=== PATIENT | male | born 1960 | race Caucasian/White ===

== ENCOUNTER → 2018-05-02 | Outpatient (CLI) | payer OTHER ==
[~2018-05-02] MED LIST: ACE3 PO; ASPI-715 PO; KET10 PO; LORA10CA3 PO; MULT-1335 PO
== END ==
LOC: LAB 15:07
PROVIDERS: ATTEND Family Medicine
DX: M79.1 Myalgia (principal); E55.9 Vitamin D deficiency, unspecified
CPT/HCPCS: 36415; 82306; 85651; 86038; 86140; 86200; 86235; 86430